=== PATIENT | male | born 1990 | race Caucasian/White ===

== ENCOUNTER 2021-09-23 12:10 | Emergency (ER) | payer OTHER ==
[~2021-09-23] VITALS: Ht 175.3 cm; Wt 83.5 kg
[~2021-09-23 12:10] MED LIST: DIPH50 PO
[2021-09-23] MEDS ORDERED: BUSP5 (12:42)
[2021-09-23] MEDS ORDERED: Seroquel Xr50 MG (12:42)
[2021-09-23] MEDS ORDERED: MELO7.5 PO (12:42)
== END 2021-09-23 13:54 | disposition home or self-care (01) ==
LOC: ER 12:10
DX: J02.9 Acute pharyngitis, unspecified (principal); F17.210 Nicotine dependence, cigarettes, uncomplicated
CPT/HCPCS: 87081; 87430; 99283

== ENCOUNTER 2022-10-27 11:54 | Day surgery (SDC) | payer OTHER ==
[~2022-10-27] VITALS: Ht 175.3 cm; Wt 110.1 kg
[~2022-10-27 11:54] MED LIST changes: +BUSP5; +CODACE30 PO; +IBUP800 PO; +MELO7.5 PO; +Seroquel Xr50 MG
[2022-10-27] MEDS ORDERED: OLAN10 (12:10)
== END 2022-10-27 13:18 | disposition home or self-care (01) ==
LOC: ORSCSDS 11:54
PROVIDERS: Internal Medicine Gastroenterology
PROC: 0DB58ZX Excision of Esophagus, Via Natural or Artificial Opening Endoscopic, Diagnostic (ICD-10-PCS; principal; 2022-10-27 13:15)
PROC: 0D757ZZ Dilation of Esophagus, Via Natural or Artificial Opening (ICD-10-PCS; principal; 2022-10-27 13:15)
DX: R13.10 Dysphagia, unspecified (principal); K20.90 Esophagitis, unspecified without bleeding; F84.0 Autistic disorder; F20.0 Paranoid schizophrenia; Z79.899 Other long term (current) drug therapy
CPT/HCPCS: 88305; J2704; J7120

== ENCOUNTER 2023-05-30 09:05 | Day surgery (SDC) | payer OTHER ==
[~2023-05-30] VITALS: Ht 175.3 cm; Wt 116.0 kg
[~2023-05-30 09:05] MED LIST changes: +OLAN10
[2023-05-30] MEDS ORDERED: CLON.5 PO (09:38)
[2023-05-30] MEDS ORDERED: OMEP20ER PO (09:38)
--- NOTE | 2023-05-30 11:04 | NUR ---
05/30/23 1104 STANLEY ANDERSON EXAM ABORTED PER D/T FOOD CONTENTS IN STOMACH AT TIME OF EXAM.
[2023-05-30 11:10] VITALS: BP 155/84
== END 2023-05-30 11:03 | disposition home or self-care (01) ==
LOC: ORSCSDS 09:05
PROVIDERS: Specialist
PROC: 0DJ08ZZ Inspection of Upper Intestinal Tract, Via Natural or Artificial Opening Endoscopic (ICD-10-PCS; principal; 2023-05-30 10:30)
DX: K20.0 Eosinophilic esophagitis (principal); F84.0 Autistic disorder; E66.9 Obesity, unspecified; Z68.37 Body mass index [BMI] 37.0-37.9, adult; F17.210 Nicotine dependence, cigarettes, uncomplicated; Z79.899 Other long term (current) drug therapy
CPT/HCPCS: J2704; J7120

== ENCOUNTER 2023-08-06 13:06 | Day surgery (SDC) | payer OTHER ==
[~2023-08-06] VITALS: Ht 175.3 cm; Wt 121.0 kg
[~2023-08-06 13:06] MED LIST changes: +CLON.5 PO; +OMEP20ER PO
[2023-08-06 15:09] VITALS: BP 161/107
--- NOTE | 2023-08-06 15:11 | NUR ---
08/06/23 1511 Senia Fierro IV [id number] 1450/CATHETER WNL
== END 2023-08-06 14:58 | disposition home or self-care (01) ==
LOC: ORSCSDS 13:06
PROVIDERS: Specialist
PROC: 0DB58ZX Excision of Esophagus, Via Natural or Artificial Opening Endoscopic, Diagnostic (ICD-10-PCS; principal; 2023-08-06 14:30)
DX: R13.10 Dysphagia, unspecified (principal); K20.0 Eosinophilic esophagitis; F84.0 Autistic disorder; E66.9 Obesity, unspecified; F20.0 Paranoid schizophrenia; Z68.36 Body mass index [BMI] 36.0-36.9, adult; F17.210 Nicotine dependence, cigarettes, uncomplicated; Z79.899 Other long term (current) drug therapy
CPT/HCPCS: 88305; J2704; J7120

== ENCOUNTER → 2023-11-09 | Outpatient (CLI) | payer OTHER ==
[2023-11-09 19:01] LABS: BASOPHILS ABSOLUTE AUTO 0.05 K/mm3 (0.00-0.23); BASOPHILS PERCENT AUTO 1 % (0-2); EOSINOPHILS ABSOLUTE AUTO 0.27 K/mm3 (0.00-0.68); EOSINOPHILS PERCENT AUTO 4 % (0-6); Hematocrit 46.6 % (37.0-53.0); Hemoglobin 14.8 g/dL (13.5-17.5); IMMATURE GRAN ABSOLUTE AUTO 0.02 K/mm3 (0.00-0.10); IMMATURE GRAN PERCENT AUTO 0 % (0-1); LYMPHOCYTES ABSOLUTE AUTO 2.61 K/mm3 (0.84-5.20); LYMPHOCYTES PERCENT AUTO 40 % (21-46); MONOCYTES ABSOLUTE AUTO 0.49 K/mm3 (0.16-1.47); MONOCYTES PERCENT AUTO 8 % (4-13); Mean Corpuscular HGB 27.1 pg (26.0-34.0); Mean Corpuscular HGB Conc 31.8 g/dL (31.5-36.5); Mean Corpuscular Volume 85 fL (80-100); Mean Platelet Volume 12.1 fL (9.1-12.4); NEUTROPHILS ABSOLUTE AUTO 3.13 K/mm3 (1.96-9.15); NEUTROPHILS PERCENT AUTO 48 % (41-73); Platelet Count 271 K/mm3 (150-400); RDW Coefficient Variation 14.1 % (11.7-14.2); RDW Standard Deviation 43.8 fL (35.1-46.3); Red Blood Cell Count 5.47 M/mm3 (4.30-5.90); White Blood Cell Count 6.57 K/mm3 (4.00-11.30)
[2023-11-09 23:24] LABS: Alanine Aminotransfer (ALT/SGP 195 U/L (12-78); Albumin, Blood 4.3 g/dL (3.4-5.0); Alk Phos 132 U/L (50-136); Anion Gap 7 mmol/L (3-11); Aspartate Aminotrans (AST/SGOT 158 U/L (12-37); Bilirubin, Total 0.6 mg/dL (0.1-1.0); Blood Urea Nitrogen 9 mg/dL (8-24); Bun/Creatinine Ratio 11.6 (12.0-20.0); CHOL/HDL RATIO 9.7; CO2, Blood 28 mmol/L (21-32); Calcium, Blood 9.7 mg/dL (8.5-10.1); Chloride, Blood 106 mmol/L (98-108); Cholesterol 271 mg/dL (50-200); Creatinine, Blood 0.78 mg/dL (0.60-1.20); Globulin, Blood 4.3 g/dL (2.2-4.0); Glomerular Filtration Rate 119 (60-); Glucose, Blood 92 mg/dL (70-99); HDL Cholesterol 28 mg/dL (>39); LDL/HDL RATIO 6.5; Low Density Lipoprotein Chol 181 mg/dL (0-110); Potassium, Blood 4.2 mmol/L (3.5-5.5); Sodium, Blood 137 mmol/L (136-145); Total Protein, Blood 8.6 g/dL (6.4-8.2); Triglycerides 312 mg/dL (30-140); Very Low Density Lipoprot Chol 62 mg/dL (6-28)
== END | disposition home or self-care (01) ==
LOC: LAB SHORT 12:20 → LAB 12:20
PROVIDERS: Nurse Practitioner Family
DX: Z00.00 Encounter for general adult medical examination without abnormal findings (principal); Z13.220 Encounter for screening for lipoid disorders; E55.9 Vitamin D deficiency, unspecified
CPT/HCPCS: 80053; 80061; 82306; 84443; 85025

== ENCOUNTER 2025-07-24 10:49 | Emergency (ER) | payer OTHER ==
[~2025-07-24] VITALS: Ht 175.3 cm; Wt 117.9 kg
[2025-07-24 11:06] VITALS: BP 140/96
[2025-07-24] MEDS ORDERED: HYDROCODONE-AC1 EA10 PO (14:34)
== END 2025-07-24 14:49 | disposition home or self-care (01) ==
LOC: ER 10:49
DX: S92.321A Displaced fracture of second metatarsal bone, right foot, initial encounter for closed fracture (principal); F17.210 Nicotine dependence, cigarettes, uncomplicated; W01.0XXA Fall on same level from slipping, tripping and stumbling without subsequent striking against object, initial encounter
CPT/HCPCS: 73562-RT; 73630; 99283-25